=== PATIENT | female | born 1950 | race Caucasian/White ===

== ENCOUNTER 2019-02-22 20:52 | Emergency (ER) | payer MEDICARE, OTHER ==
[~2019-02-22] VITALS: Ht 152.4 cm; Wt 62.6 kg
[2019-02-22 20:55] VITALS: BP_SYST 164
--- NOTE | 2019-02-22 20:58 | NUR ---
Patient to ER bed FERNANDO to gown for evaluation. Side rails up. Report given to REY LOPEZ.
--- NOTE | 2019-02-22 21:08 | NUR ---
Pt yelling nurse asking for ER doctor to see his right away.Pt and her was informed ER MD was notified.Pt wants to transfer pt to another hospital via ambulance. Pt LWBS walk out the ER ambulatory w/ steady gait accompaned by her .
== END 2019-02-22 21:08 | disposition left against medical advice (07) ==
LOC: SED 20:52
DX: R10.9 Unspecified abdominal pain (principal); Z53.21 Procedure and treatment not carried out due to patient leaving prior to being seen by health care provider